=== PATIENT | female | born 1965 | race Caucasian/White ===

== ENCOUNTER 2018-02-13 00:49 | Emergency (ER) | payer BC ==
[~2018-02-13] VITALS: Ht 172.7 cm; Wt 90.3 kg
[2018-02-13] MEDS ORDERED: ONDANSETRON HCL INJ 2 MG/ML VIAL IV STA (00:57)
[2018-02-13] MEDS ORDERED: DEXAMETHASONE SOD PHOS 10 MG/1 ML VIAL IV ONE (01:00)
[2018-02-13] MEDS ORDERED: KETOROLAC TROMETHAMINE 60 MG/2 ML VIAL IV ONE (01:00)
[2018-02-13] MEDS ORDERED: HYDROCODONE/APAP 5MG-325MG TAB PO ONE (01:00)
[2018-02-13] MEDS ORDERED: SODIUM CHLORIDE 0.9% 1000ML 1,000 ML IV STA (01:01)
[2018-02-13] MEDS ORDERED: METHYLPREDNISOLONE SOD SUCC 125 MG/2ML VIAL IV ONE (01:15)
[2018-02-13 01:21] LABS: BASOPHILS % 0.9 % (0.0-1.0); EOSINOPHILS # (AUTO) 0.2 (0.0-0.4); EOSINOPHILS % 3.4 % (0.0-6.0); HEMATOCRIT 35.2 % (34.2-44.1); HEMOGLOBIN 11.8 g/dL (12.0-16.0); LYMPHOCYTES # (AUTO) 1.2 (1.0-3.2); LYMPHOCYTES % 27.4 % (18.0-39.1); MEAN CORPUSCULAR HEMOGLOBIN 31.6 pg (28-32); MEAN CORPUSCULAR HGB CONC 33.5 g/dL (31-35); MEAN CORPUSCULAR VOLUME 94.1 fL (81-99); MONOCYTES # (AUTO) 0.4 (0.2-0.8); MONOCYTES % 10.1 % (4.4-11.3); NEUTROPHILS # (AUTO) 2.5 (2.1-6.9); PLATELET COUNT 196 x10e3/uL (140-360); RED BLOOD COUNT 3.74 x10e6/uL (3.6-5.1); RED CELL DISTRIBUTION WIDTH 12.2 % (11.7-14.4)
[2018-02-13 01:39] LABS: ALANINE AMINOTRANSFERASE 41 IU/L (0-55); ALBUMIN 3.9 g/dL (3.5-5.0); ALBUMIN/GLOBULIN RATIO 1.6 (0.8-2.0); ALKALINE PHOSPHATASE 62 IU/L (40-150); ANION GAP 13.5 mmol/L (8-16); BLOOD UREA NITROGEN 17 mg/dL (7-26); BUN/CREATININE RATIO 18 (6-25); CALCIUM 9.3 mg/dL (8.4-10.2); CARBON DIOXIDE 24 mmol/L (22-29); CHLORIDE 108 mmol/L (98-107); CREATININE, SERUM 0.96 mg/dL (0.57-1.11); EST GLOMERULAR FILTRATION RATE > 60 ML/MIN (60-); GLUCOSE 116 mg/dL (74-118); POTASSIUM 4.5 mmol/L (3.5-5.1); SODIUM 141 mmol/L (136-145)
[2018-02-13 01:40] LABS: CREATINE KINASE MB 1.7 ng/mL (0-5.0)
[2018-02-13 01:49] LABS: CLARITY,URINE CLEAR (CLEAR); COLOR,URINE YELLOW (YELLOW); KETONES,URINE TRACE (NEGATIVE); LEUKOCYTE ESTERASE ,URINE NEGATIVE (NEGATIVE); NITRITE,URINE NEGATIVE (NEGATIVE); PROTEIN,URINE DIPSTICK NEGATIVE (NEGATIVE); URINE UROBILINOGEN 0.2 mg/dL (0.2 - 1)
[2018-02-13 01:50] LABS: BILIRUBIN,URINE NEGATIVE (NEGATIVE); EPITHELIAL CELLS,URINE FEW /LPF; RBC,URINE 0-5 /HPF (0-5); WBC,URINE (MAN) 0-5 /HPF (0-5)
--- NOTE | 2018-02-13 02:06 | Diagnostic Imaging Report ---
EXAMINATION: CT of the cervical spine HISTORY: Acute posterior neck pain, multiple pain, patient on Lipitor for 2 weeks. No history of trauma. COMPARISON: None available TECHNIQUE: Multidetector helical axial images were obtained without contrast from the foramen magnum to T1. The images were reconstructed using bone and soft tissue algorithms and were viewed in axial, sagittal and coronal planes. Dose modulation, iterative reconstruction, and/or weight based adjustment of the mA/kV was utilized to reduce the radiation dose to as low as reasonably achievable. FINDINGS: Alignment: Straightening of cervical lordosis which may be related to muscle spasm or positional Soft tissues: Normal Vertebrae: Normal height and density. No acute fracture, infection or neoplasm Degenerative changes: C1-C2: Normal C2-C3: Facet arthrosis mainly on the right without stenoses. C3-C4: Mild facet arthrosis without stenosis C4-C5: Facet arthrosis mainly on the left without stenosis. Minimal anterolisthesis. C5-C6: Disc osteophyte complex formation, uncovertebral and facet arthrosis. Moderate right foraminal stenosis. C6-C7: Normal C7-T1: Normal IMPRESSION: 1. Moderate degenerative foraminal stenosis on the right at C5-C6. 2. 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 3. Minimal degenerative anterolisthesis at C4-C5. 4. Straightening of the cervical lordosis which may be related to muscle spasm or positional. Signed by: Dr. Farzana Gregorio M.D. on 02/13/2018 2:03 AM
[2018-02-13] MEDS ORDERED: ZOFRAN ODT4 MG (02:29)
[2018-02-13] MEDS ORDERED: ZANAFLEX4 MG (02:29)
[2018-02-13] MEDS ORDERED: TYLENOL WITH C1 EACH PO (02:29)
== END 2018-02-13 02:55 | disposition home or self-care (01) ==
LOC: ER 00:49
DX: M54.2 Cervicalgia (principal); M50.220 Other cervical disc displacement, mid-cervical region, unspecified level; M47.812 Spondylosis without myelopathy or radiculopathy, cervical region; I10 Essential (primary) hypertension; E11.9 Type 2 diabetes mellitus without complications
CPT/HCPCS: 36415; 72125; 80053; 81001; 82550; 82553; 84484; 85025; 99284; J1885; J2405; J2930; J7030

== ENCOUNTER 2018-07-16 14:22 | Emergency (ER) | payer BC ==
[~2018-07-16] VITALS: Ht 172.7 cm; Wt 90.3 kg
[~2018-07-16 14:22] MED LIST: TYLENOL WITH C1 EACH PO; ZANAFLEX4 MG; ZOFRAN ODT4 MG
--- OUTSIDE RECORDS SUMMARY | 2018-07-16 14:25 | XMS REPORT | Clinical Summary ---
Author Author [facility] Address Unknown Phone Unavailable Care Team Providers Care Grocery Sacker Name Role Phone Kash Parekh MD PCP Allergies Comments Active Allergy Reactions Severity Noted Date Sulfa (Sulfonamide 12/08/2017 Antibiotics) Medications End Date Status Medication Sig Dispensed Refills Start Date Active losartan (COZAAR) 50 MG 0 tablet 8 Active metFORMIN (GLUCOPHAGE) 0 500 mg tablet 8 Active Problems No known active problems Encounters Care Team Description Date Type Specialty Irma Adorno 01/22/2018 Telephone Radiology Nadege Varela MD 01/21/2018 Hospital Radiology Encounter Nadege Varela MD 01/21/2018 Hospital Radiology Encounter Nadege Varela MD 01/21/2018 Hospital Radiology Encounter Nadege Varela MD 01/21/2018 Hospital Radiology Encounter Nadege Varela MD 01/21/2018 Hospital Radiology Encounter Maria Guadalupe Contreras MA 01/12/2018 Telephone Obstetrics and Gynecology Nadege Varela MD Screening for osteoporosis 01/11/2018 Hospital Radiology Encounter Nadege Varela MD Screening mammogram, encounter for 01/11/2018 Hospital Radiology Encounter Nadege Varela MD Well woman exam with routine gynecological exam (Primary Dx); Screening mammogram, encounter for; Screening for osteoporosis; Screening for cervical cancer 12/08/2017 Office Visit Obstetrics and Gynecology after 07/15/2017 Social History Date Tobacco Use Types Packs/Day Years Used Never Smoker Smokeless Tobacco: Never Used Alcohol Use Drinks/Week oz/Week Comments No Sex Assigned at Date Recorded Not on file Industry Job Start Date Occupation Not on file Not on file Not on file Travel End Travel History Travel Start No recent travel history available. Last Filed Vital Signs Time Taken Vital Sign Reading 12/08/2017 2:08 PM CDT Blood Pressure 119/80 12/08/2017 2:08 PM CDT Pulse 98 - Temperature - - Respiratory Rate - - Oxygen Saturation - - Inhaled Oxygen - Concentration 12/08/2017 2:08 PM CDT Weight 92.1 kg (203 lb) 12/08/2017 2:08 PM CDT Height 172.7 cm (5' 8") 12/08/2017 2:08 PM CDT Body Mass Index 30.87 Plan of Treatment Health Maintenance Due Date Last Done Comments CERVICAL CANCER SCREENING 01/23/1985 COLON CANCER SCREENING 01/23/2014 SHINGLES VACCINES (1 of 01/23/2014 2) INFLUENZA VACCINE 01/06/2018 BREAST CANCER SCREENING 01/12/2020 01/11/2018 Procedures Comments Procedure Name Priority Date/Time Associated Diagnosis MAMMO BREAST SCREEN Routine 01/11/2018 Screening mammogram, TOMOSYNTHESIS BILATERAL 2:13 PM CDT encounter for BONE DENSITY Routine 01/11/2018 Screening for 1:45 PM CDT osteoporosis THINPREP TIS PAP Routine 12/08/2017 2:24 PM CDT HPV DNA, HIGH RISK WITH Routine 12/08/2017 REFLEX TO GENOTYPES 16,18 2:24 PM CDT after 07/15/2017 Results * Mammo Breast Screen Tomosynthesis Bilateral (01/11/2018 2:13 PM CDT) Addenda Addendum by Matthieu Jarrett MD on 01/21/2018 4:04 PM ADDENDUM #1 Outside mammograms dated 02/10/2014, 02/21/2014 and 04/13/2015 performed at [facility] in [place], [place] submitted for comparison. The previously described asymmetric right nipple inversion is similar in appearance compared to previous mammograms dating back to at least 2013 and is considered benign. Allowing for interval tissue involution and differences in imaging technique, there has been no significant interval change in the mammographic appearance of the bilateral breasts. IMPRESSION: No specific mammographic features of breast malignancy. Final assessment: BIRADS 2. Benign findings. Recommend correlation with physical examination and annual screening mammography for which the patient will be due January 2019. Narrative Performed At EXAMINATION: MAMMO BREAST SCREEN TOMOSYNTHESIS BILATERAL [facility] COMPARISON:No prior mammograms provided for comparison. TECHNIQUE: Bilateral digital screening mammography was performed with tomosynthesis and interpreted using computer-assisted detection. CLINICAL HISTORY: 52-year-old asymptomatic female with no personal or family history of breast malignancy. The patient presents for routine screening. FINDINGS: There are scattered fibroglandular densities. There are arterial vascular calcifications in the left breast. There is asymmetric right nipple inversion. There are no suspicious masses, calcifications or distortions in either breast. IMPRESSION: 1. Asymmetric right nipple inversion. Recommend correlation with previous outside imaging to assess stability. If prior images cannot be obtained in three weeks, further diagnostic evaluation is warranted. 2. No specific mammographic features of left breast malignancy. BI-RADS 0. Incomplete. Additional imaging required. The patient should return for additional views and possible ultrasound of the right breast. If prior outside mammograms become available for comparison, an addendum will be provided. This facility is accredited by the [employer] for Mammography. A negative x-ray report should not delay biopsy if a dominant or clinically suspicious mass is present.Not all cancers are identified by x-ray. [id number] Performing Organization Address City/State/Zipcode Phone Number [facility] [address] [place] [address] * Bone Density (01/11/2018 1:45 PM CDT) Narrative Performed At [facility] CLINICAL H[facility]ORY:Z13.820 Encounter for screening for osteoporosis, Screening COMPARISON:None. The results of this study expressed as bone mineral density (BMD) were as follows: AP spine (L1-L4) BMD: 1.044 g/cm2 T-Score: -0.0 Z-Score: 1.0 Percent change: No prior exam. % Dual Femur (Total Mean): BMD: 0.950 g/cm2 T-Score: 0.1 Z-Score:0.7 Percent change: No prior exam. % Impression: 1.No evidence of osteopenia based on T-scores Notes: *The world health organization (WHO) has classified the patient's T-score as follows: Above (-1) as normal (-1) to (-2.5) as low (osteopenia) Below (-2.5) as abnormally low (osteoporosis, increased fracture risk) For premenopausal women, men under the age 50 years, and children the WHO classification does not apply. In these individuals please assess bone mineral density with Z scores for each skeletal site examined. Z scores above -2.0: Within expected range for age. Z scores lower than -2.0:Low bone density for age. The TBS is derived from the texture of the DEXA image and has been shown to be related to bone microarchitecture and fracture risk. This data provides information independent of BMD value; is used as a complement to the data obtained from the DEXA analysis and the clinical examination. The TBS can assist the healthcare professional in assessment of fracture risk and in monitoring the effect of treatments on patient over time. [facility]-[id number] Procedure Note [facility], Radiology Results Incoming - 01/11/2018 3:07 PM CDT EXAMINATION: BONE DENSITY CLINICAL HISTORY: Z13.820 Encounter for screening for osteoporosis, Screening COMPARISON: None. The results of this study expressed as bone mineral density (BMD) were as follows: AP spine (L1-L4) BMD: 1.044 g/cm2 T-Score: -0.0 Z-Score: 1.0 Percent change: No prior exam. % Dual Femur (Total Mean): BMD: 0.950 g/cm2 T-Score: 0.1 Z-Score: 0.7 Percent change: No prior exam. % Impression: 1. No evidence of osteopenia based on T-scores Notes: *The world health organization (WHO) has classified the patient's T-score as follows: Above (-1) as normal (-1) to (-2.5) as low (osteopenia) Below (-2.5) as abnormally low (osteoporosis, increased fracture risk) For premenopausal women, men under the age 50 years, and children the WHO classification does not apply. In these individuals please assess bone mineral density with Z scores for each skeletal site examined. Z scores above -2.0: Within expected range for age. Z scores lower than -2.0: Low bone density for age. The TBS is derived from the texture of the DEXA image and has been shown to be related to bone microarchitecture and fracture risk. This data provides information independent of BMD value; is used as a complement to the data obtained from the DEXA analysis and the clinical examination. The TBS can assist the healthcare professional in assessment of fracture risk and in monitoring the effect of treatments on patient over time. [id number] Performing Organization Address City/State/Zipcode Phone Number [facility] [address] [place] [address] * HPV DNA, High Risk with Reflex to Genotypes 16,18 (12/08/2017 2:24 PM CDT) HPV high risk (ThinPrep) NOT DETECTED [facility] Comment: Tested for High Risk types 16, 18, 31, 33, 35, 39, 45, 51, 52, 56, 58, 59, 68. REFERENCE RANGE: HPV DNA HIGH RISK: NOT DETECTED Methodology: 4th aspect Hybrid Capture II The analytical performance characteristics of this assay have been determined by [employer]. The modifications have not been cleared or approved by the FDA. This assay has been validated pursuant to the CLIA regulations and is used for clinical purposes. Resulting Agency Comment Performing Organization Information: Site ID: [id number] Name: [facility] Address: [address] [place] [id number] Director: Fadi Morgan MD Performing Organization Address City/[facility]/Zipcode Phone Number [facility] [address] [place] [address] [phone] * THINPREP TIS PAP (12/08/2017 2:24 PM CDT) Clinical information None given [employer] [place] Date of last menstrual NONE GIVEN [employer] period [place] Prev. pap: NONE GIVEN [employer] [place] Prev. bx: NONE GIVEN [employer] [place] Source None given [employer] [place] Statement of adequacy Comment: Last[employer] Satisfactory for evaluation. [place] Endocervical/transformation zone component absent. Age and/or menstrual status not provided Interpretation/result: Comment: Negative for [employer] intraepithelial lesion or [place] malignancy. Comment Comment: [employer] This Pap test has been [place] evaluated with computer assisted technology. [employer] Comment: Last.fm J, CT(ASCP) [place] CT screening location: [place] [address] [facility] [address] Comment Comment: [employer] EXPLANATORY NOTE: [place] The Pap is a screening test for cervical cancer. It is not a diagnostic test and is subject to false negative and false positive results. It is most reliable when a satisfactory sample, regularly obtained, is submitted with relevant clinical findings and history, and when the Pap result is evaluated along with historic and current clinical information. Resulting Agency Comment Performing Organization Information: Site ID: [id number] Name: [facility] Address: [address] [place] [phone] Director: Yolis George Performing Organization Address City/State/Zipcode Phone Number JONNA [employer] [place] [phone] after 07/15/2017 Insurance Payer Benefit Subscriber ID Type Phone Address Plan / Group BCBS BCBS xxxxxxxxxxxx PPO CHOICE PPO/MILLY RAINES PPO Advance Directives Patient has advance care planning documents on file. For more information, elena osborne contact: Reed Yanes [address] [place] [address]
--- OUTSIDE RECORDS SUMMARY | 2018-07-16 14:25 | XMS REPORT ---
Author Author [facility] Address Unknown Phone Unavailable Care Team Providers Care Launch Leader Name Role Phone Scarlett RAMIREZ Unavailable Unavailable Problems This patient has no known problems. Allergies, Adverse Reactions, Alerts This patient has no known allergies or adverse reactions. Medications This patient has no known medications. Results Test Description Test Time Test Comments Text Results Atomic Results Result Comments CT CERVICAL SPINE WO 2018-02-13 01:57:00 [place] [address] Patient Name: THERESE MARAVILLA MR #: [id number] : 1965 Age/Sex: 53/F Req #: [id number] Adm Physician: Ordered by: GENET RAMIREZ MD Report #: [id number] Location: ER Room/Bed: Procedure: [id number] CT/CT CERVICAL SPINE WO Exam Date: Exam Time: REPORT STATUS: Signed EXAMINATION: CT of the cervical spine HISTORY: Acute posterior neck pain, multiple pain, patient on Lipitor for 2 weeks. No history of trauma. COMPARISON: None available TECHNIQUE: Multidetector helical axial images were obtained without contrast from the foramen magnum to T1. The images were reconstructed using bone and soft tissue algorithms and were viewed in axial, sagittal and coronal planes. Dose modulation, iterative reconstruction, and/or weight based adjustment of the mA/kV was utilized to reduce the radiation dose to as low as reasonably achievable. FINDINGS: Alignment: Straightening of cervical lordosis which may be related to muscle spasm or positional Soft tissues: Normal Vertebrae: Normal height and density. No acute fracture, infection or neoplasm Degenerative changes: C1-C2: Normal C2-C3: Facet arthrosis mainly on the right without stenoses. C3-C4: Mild facet arthrosis without stenosis C4-C5: Facet arthrosis mainly on the left without stenosis. Minimal anterolisthesis. C5-C6: Disc osteophyte complex formation, uncovertebral and facet arthrosis. Moderate right foraminal stenosis. C6- C7: Normal C7-T1: Normal IMPRESSION: 1. Moderate degenerative foraminal stenosis on the right at C5-C6. 2. 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 3. Minimal degenerative anterolisthesis at C4-C5. 4. Straightening of the cervical lordosis which may be related to muscle spasm or positional. Signed by: Dr. Poonam Gregorio M.D. on 02/13/2018 2:03 AM Dictated By: POONAM GREGORIO MD 2 Transcribed By: JERAMY on 02/13/18202 COPY TO: GENET RAMIREZ MD
[2018-07-16] MEDS ORDERED: SODIUM CHLORIDE 0.9% 1000ML 1,000 ML IV ONE (15:15)
[2018-07-16] MEDS ORDERED: ONDANSETRON HCL INJ 2MG/ML 2ML 2 MG/ML VIAL IV ONE (15:30)
[2018-07-16] MEDS ORDERED: KETOROLAC TROMETHAMINE 30 MG/ML VIAL IV ONE (15:30)
[2018-07-16 15:49] LABS: BASOPHILS % 0.1 % (0.0-1.0); HEMATOCRIT 34.6 % (34.2-44.1); HEMOGLOBIN 11.9 g/dL (12.0-16.0); LYMPHOCYTES # (AUTO) 0.4 (1.0-3.2); LYMPHOCYTES % 3.2 % (18.0-39.1); MEAN CORPUSCULAR HEMOGLOBIN 31.6 pg (28-32); MEAN CORPUSCULAR HGB CONC 34.4 g/dL (31-35); MEAN CORPUSCULAR VOLUME 91.8 fL (81-99); MONOCYTES # (AUTO) 0.9 (0.2-0.8); MONOCYTES % 6.8 % (4.4-11.3); NEUTROPHILS % 89.4 % (38.7-80.0); PLATELET COUNT 132 x10e3/uL (140-360); RED BLOOD COUNT 3.77 x10e6/uL (3.6-5.1); RED CELL DISTRIBUTION WIDTH 12.4 % (11.7-14.4)
[2018-07-16 16:03] LABS: CALCIUM 9.4 mg/dL (8.4-10.2); CREATININE, SERUM 1.6 mg/dL (0.57-1.11)
--- NOTE | 2018-07-16 16:05 | Diagnostic Imaging Report ---
EXAMINATION: CHEST 2 VIEWS INDICATION: Fever. Flulike symptom ^FEVER/FLS ^[id number] ^[id number] COMPARISON: None FINDINGS: TUBES and LINES: None. LUNGS: Lungs are well inflated. Perihilar peribronchial hazy opacity could be due to bronchitis. Likely small calcified granuloma in the right upper lung. PLEURA: No pleural effusion or pneumothorax. HEART AND MEDIASTINUM: The cardiomediastinal silhouette is unremarkable. BONES AND SOFT TISSUES: No acute osseous lesion. Soft tissues are unremarkable. UPPER ABDOMEN: No free air under the diaphragm. IMPRESSION: Perihilar peribronchial hazy opacity could be due to bronchitis. Likely small calcified granuloma in the right upper lung. Signed by: Dr. Michael Thmopson M.D. on 07/16/2018 4:02 PM
[2018-07-16] MEDS ORDERED: ONDANSETRON HCL INJ 2MG/ML 2ML 2 MG/ML VIAL IV STA (17:11)
[2018-07-16 17:13] LABS: CLARITY,URINE SL CLOUDY (CLEAR); COLOR,URINE STRAW (YELLOW); LEUKOCYTE ESTERASE ,URINE TRACE (NEGATIVE); NITRITE,URINE POSITIVE (NEGATIVE)
[2018-07-16 17:14] LABS: BILIRUBIN,URINE 1+ (NEGATIVE); KETONES,URINE 1+ (NEGATIVE); PROTEIN,URINE DIPSTICK 2+ (NEGATIVE); URINE UROBILINOGEN 1 mg/dL (0.2 - 1)
[2018-07-16] MEDS ORDERED: METOCLOPRAMIDE HCL 10 MG/2ML VIAL IV ONE (17:15)
[2018-07-16 17:22] LABS: BACTERIA,URINE MANY /HPF; WBC,URINE (MAN) 0-5 /HPF (0-5)
[2018-07-16] MEDS ORDERED: ACETAMINOPHEN 325 MG TAB PO ONE (18:00)
== END 2018-07-16 18:37 | disposition home or self-care (01) ==
LOC: ER 14:22
DX: J20.8 Acute bronchitis due to other specified organisms (principal); R11.2 Nausea with vomiting, unspecified; N30.91 Cystitis, unspecified with hematuria
CPT/HCPCS: 36415; 71046; 80048; 81001; 85025; 99284; J1885; J2405; J2765; J7030